=== PATIENT | male | born 1995 | race Two or more races ===

== ENCOUNTER → 2018-03-01 | Outpatient (REF) | payer BC ==
[~2018-03-01] MED LIST: HYDR-4309 PO; ONDA4TAB PO
[2018-03-01 13:35] LABS: PLATELET COUNT, AUTOMATED 212 K/uL (150-450)
== END ==
LOC: ZZSENDIN 13:24
PROVIDERS: ATTEND Physician Assistant
DX: R10.84 Generalized abdominal pain (principal)
CPT/HCPCS: 82040; 82247; 82310; 82374; 82435; 82565; 82947; 84075; 84132; 84155; 84295; 84450; 84460; 84520; 85025

== ENCOUNTER 2019-03-24 09:00 | Emergency (ER) | payer SELFPAY ==
[~2019-03-24 09:00] MED LIST changes: -HYDR-4309 PO; +HYDR-653 PO
--- NOTE | 2019-03-24 09:07 | ER Report ---
History and Physical Time Seen By MD: 09:04 HPI/ROS CHIEF COMPLAINT: Left lower quadrant abdominal pain, nausea, vomiting HISTORY OF PRESENT ILLNESS: Patient is a 24-year-old male here with complaints of left lower quadrant abdominal pain, nausea, vomiting for the past 48 hours. Patient reports that he developed hematemesis which prompted evaluation. Patient also describes having left sided distal extremity numbness which has been going on for a couple weeks now. Patient is afebrile, hemodynamically stable at time of evaluation. Denies prior history of similar symptoms. REVIEW OF SYSTEMS: Constitutional: No fever, + chills. Eyes: No discharge. ENT: No sore throat. Cardiovascular: No chest pain, no palpitations. Respiratory: No cough, no shortness of breath. Gastrointestinal: + Left lower quadrant abdominal pain with radiation to the left flank, + nausea and vomiting, hematemesis. Genitourinary: No hematuria. Musculoskeletal: No back pain. Skin: No rashes. Neurological: No headache. Allergies: Coded Allergies: No Known Drug Allergies (Unverified , 05/03/17) Home Meds Active Scripts Ondansetron 4 Mg Odt (ONDANSETRON 4 MG ODT) 4 Mg Tab.rapdis, 4 MG PO Q4-6H PRN for NAUSEA/VOMITING, #20 TAB Prov:GUI JEAN DO 03/24/19 Tramadol Hcl (TRAMADOL HCL) 50 Mg Tablet, 50 MG PO Q6H PRN for PAIN, #6 TAB 0 Refills Prov:GUI JEAN DO 03/24/19 Cephalexin Monohydrate (CEPHALEXIN) 500 Mg Cap, 500 MG PO Q12H for 7 Days, #14 CAP 0 Refills Prov:GUI JEAN DO 03/24/19 Discontinued Scripts Ondansetron (ZOFRAN ODT) 4 Mg Tab.rapdis, 4 MG PO Q6H PRN for NAUSEA/VOMITING, #20 TAB.RY 0 Refills Prov:JOYCE RAMOS MD 06/19/17 Ondansetron (ZOFRAN ODT) 4 Mg Tab.rapdis, 4 MG PO Q6H PRN for NAUSEA/VOMITING, #20 TAB.RY Prov:JO BLACKWELL APRN-C 05/03/17 Hydrocodone Bit/Acetaminophen (NORCO 5-325 TABLET) 1 Each Tablet, 1 EACH PO Q4- 6H PRN for PAIN, #12 TAB Prov:JO BLACKWELL DATA ENTRY ANALYST-C 05/03/17 Hx Smoking: No Smoking Status: Former Smoker Exposure to Second Hand Smoke?: No Hx Substance Use Disorder: No Hx Alcohol Use: No Constitutional Vital Sign - Last 24 Hours 03/24/19 03/24/19 09:07 11:22 Temp 98.0 Pulse 87 77 Resp 12 18 B/P (MAP) 129/80 140/86 (104) Pulse Ox 92 94 O2 Delivery Room Air Room Air Physical Exam General Appearance: The patient is alert, has no immediate need for airway protection and no signs of toxicity. Uncomfortable appearing Eyes: Pupils equal and round no pallor or injection. ENT, Mouth: Mucous membranes are moist. Respiratory: There are no retractions, lungs are clear to auscultation. Cardiovascular: Regular rate and rhythm. Gastrointestinal: Abdomen is soft and + tender in the left lower quadrant and left flank, no masses, bowel sounds normal. Neurological: No focal neurological deficits on examination Skin: Warm and dry, no rashes. Musculoskeletal: Neck is supple non tender. Extremities are nontender, nonswollen and have full range of motion. DIFFERENTIAL DIAGNOSIS: After history and physical exam differential diagnosis was considered for abdominal pain including but not limited to appendicitis, cholecystitis, gastritis and urinary tract infection. Medical Decision Making Data Points Result Diagram: 03/24/1920 03/24/1920 Laboratory Hematology Test 03/24/19 09:20 White Blood Count 8.4 k/uL (4.5-11.0) Red Blood Count 5.65 M/uL (4.00-5.60) H Hemoglobin 17.3 g/dL (14.0-18.0) Hematocrit 50.4 % (42.0-52.0) Mean Corpuscular Volume 89.2 fL (80.0-96.0) Mean Corpuscular Hemoglobin 30.6 pg (26.0-33.0) Mean Corpuscular Hemoglobin Concent 34.3 g/dL (32.0-36.0) Red Cell Distribution Width 13.8 % (11.5-14.5) Platelet Count 226 K/uL (150-450) Mean Platelet Volume 7.1 fL (7.2-11.1) L Neutrophils (%) (Auto) 68.8 % (39.4-72.5) Lymphocytes (%) (Auto) 18.1 % (17.6-49.6) Monocytes (%) (Auto) 11.6 % (4.1-12.4) Eosinophils (%) (Auto) 1.1 % (0.4-6.7) Basophils (%) (Auto) 0.4 % (0.3-1.4) Nucleated RBC Relative Count (auto) 0.0 /100WBC Neutrophils # (Auto) 5.8 K/uL (2.0-7.4) Lymphocytes # (Auto) 1.5 K/uL (1.3-3.6) Monocytes # (Auto) 1.0 K/uL (0.3-1.0) Eosinophils # (Auto) 0.1 K/uL (0.0-0.5) Basophils # (Auto) 0.0 K/uL (0.0-0.1) Nucleated RBC Absolute Count (auto) 0.00 K/uL Chemistry Test 03/24/19 09:20 Sodium Level 140 mmol/L (137-145) Potassium Level 3.9 mmol/L (3.5-5.0) Chloride Level 105 mmol/L (98-107) Carbon Dioxide Level 24 mmol/L (22-30) Blood Urea Nitrogen 18 mg/dl (9-21) Creatinine 1.00 mg/dl (0.66-1.25) Glomerular Filtration Rate Calc > 60.0 Random Glucose 100 mg/dl (75-110) Calcium Level 9.0 mg/dl (8.4-10.2) Total Bilirubin 0.6 mg/dl (0.2-1.3) Aspartate Amino Transf (AST/SGOT) 25 U/L (0-35) Alanine Aminotransferase (ALT/SGPT) 40 U/L (0-56) Alkaline Phosphatase 84 U/L (0-126) Total Protein 7.8 g/dl (6.3-8.2) Albumin 4.5 g/dl (3.5-5.0) Lipase 35 U/L (23-300) Urinalysis Test 03/24/19 09:03 Urine Color Yellow Urine Clarity Slightly-cloudy Urine pH 5.0 pH (4.8-9.5) Urine Specific [place] 1.030 Urine Protein 30 mg/dL (NEGATIVE) Urine Glucose (UA) Negative mg/dL (NEGATIVE) Urine Ketones Negative mg/dL (NEGATIVE) Urine Blood Small (NEGATIVE) Urine Nitrite Negative (NEGATIVE) Urine Bilirubin Negative (NEGATIVE) Urine Urobilinogen Negative mg/dL (0.2-1.9) Urine Leukocyte Esterase Trace (NEGATIVE) Urine RBC 6 /HPF (0-2/HPF) Urine WBC 21 /HPF (0-5/HPF) Urine Squamous Epithelial Cells Many /LPF (</=FEW) Urine Bacteria Negative /HPF (NONE-FEW) Urine Mucus Few /HPF (NONE-FEW) Microbiology Microbiology Date/Time Source Procedure Growth Status 03/24/19 09:03 Clean Catch Midstream Ur Urine Culture - Final Complete EKG/Imaging Imaging PATIENT NAME: Cherelle Saez : 1995 MR: [id number] V: [id number] EXAM DATE: [id number] ORDERING PHYSICIAN: GUI JENA TECHNOLOGIST: Location: [facility] [place] Patient: Cherelle Saez : 1995 Visit/Account:[id number] Date of Sevice: 03/24/2019 CT ABDOMEN PELVIS W/ CON HISTORY: LLQ abd pain, NV TECHNIQUE: CT abdomen and pelvis with intravenous contrast. One of the following dose optimization techniques was utilized in the performance of this exam: Automated exposure control; adjustment of the mA and/or kV according to the patient's size; or use of an iterative reconstruction technique. Specific details can be referenced in the facility's radiology CT exam operational policy. CONTRAST: 75 mL Isovue-370. COMPARISON: None. FINDINGS: Visualized lung bases: Negative. Hepatobiliary: Nonspecific small nodularity along the posterior gallbladder wall measuring up to 7 mm (image 147 of series 3). This may be related to a small gallbladder fold, polyp, or noncalcified stone. Otherwise negative. Spleen: Borderline enlarged measuring 13.2 cm greatest diameter. Adrenals: Negative. Pancreas: Negative. Kidneys/: Negative. GI: Mild chronic appearing wall thickening within the colon and terminal ileum. Otherwise negative. Appendix is absent. No evidence for obstruction. Vessels/spaces/nodes: Haziness groundglass within the mesenteric root surrounding normal sized lymph nodes. Nonspecific prominent portacaval lymph node measuring 39 x 20 mm. Additional mildly prominent ankur hepatis lymph nodes noted. No additional retroperitoneal or iliac chain lymphadenopathy. Bones/soft tissues: Negative. IMPRESSION: 1. No acute findings. 2. Borderline prominence of the spleen. In addition, there is an enlarged periportal lymph node as well as hazy groundglass within the mesenteric root surrounding normal sized lymph nodes. Findings are nonspecific and could be unrelated although cannot exclude developing lymphoma or other lymphoproliferative process. The mesenteric findings could be related to mesenteric panniculitis. 3 month follow-up CT is recommended for comparison. 3. Chronic appearing mild wall thickening within the colon and terminal ileum. Cannot completely exclude acute on chronic process although felt unlikely. 4. Nonspecific nodularity along the posterior gallbladder wall. Follow-up nonemergent right upper quadrant ultrasound is recommended for further characterization. Report Dictated By: Melvin Edwards MD at 03/24/2019 10:34 AM Report E-Signed By: Melvin Edwards MD at 03/24/2019 10:42 AM WSN:[id number] ED Course/Re-evaluation ED Course Patient is a 24-year-old male here with complaints of left lower quadrant abdominal pain, nausea, vomiting, hematemesis. Patient reports initial onset of pain followed by vomiting and nausea for the past [address] imaging showed no discrete findings however radiology recommended follow-up in [address] imaging, please see radiology report for further details. Urinalysis was concerning for urinary tract infection. Patient was placed on Keflex 500 mg twice a day for 7 days. Culture sent. Recommend close PCP follow-up. Return precautions provided. Decision to Disposition Date: Mar 24, 2019 Decision to Disposition Time: 11:10 Depart Departure Latest Vital Signs Vital Signs Date Time Temp Pulse Resp B/P (MAP) Pulse Ox O2 Delivery O2 Flow Rate FiO2 03/24/19 11:22 77 18 140/86 (104) 94 Room Air 03/24/19 09:07 98.0 Impression: Primary Impression: Urinary tract infection Condition: Improved Disposition: HOME OR SELF-CARE New Scripts Ondansetron 4 Mg Odt (ONDANSETRON 4 MG ODT) 4 Mg Tab.rapdis 4 MG PO Q4-6H PRN for NAUSEA/VOMITING, #20 TAB Prov: GUI JEAN DO 03/24/19 Tramadol Hcl (TRAMADOL HCL) 50 Mg Tablet 50 MG PO Q6H PRN for PAIN, #6 TAB 0 Refills Prov: GUI JEAN DO 03/24/19 Cephalexin Monohydrate (CEPHALEXIN) 500 Mg Cap 500 MG PO Q12H for 7 Days, #14 CAP 0 Refills Prov: GUI JEAN DO 03/24/19 Patient Instructions: Urinary Tract Infection in Men (DC) Additional Instructions: Please drink plenty of water. Please take Keflex one tablet twice daily for 7 days for suspected urinary tract infection. Please follow-up with her primary care provider in the next 24-48 hours for reevaluation. You will need to have a repeat CT imaging scan in 3 months, please see your CT imaging report below. Please return promptly if you develop fevers, worsening pain, inability to keep down food or fluids. You may take Zofran 1 tablet every 4-6 hours as needed for nausea and vomiting. You may take tramadol 1 tablet every 8 hours as needed for breakthrough pain control. PATIENT NAME: Cherelle Saez : 1995 MR: [id number] V: [id number] EXAM DATE: [id number] ORDERING PHYSICIAN: GUI JEAN TECHNOLOGIST: Location: [facility] [place] Patient: Cherelle Saez : 1995 Visit/Account:[id number] Date of Sevice: 03/24/2019 CT ABDOMEN PELVIS W/ CON HISTORY: LLQ abd pain, NV TECHNIQUE: CT abdomen and pelvis with intravenous contrast. One of the following dose optimization techniques was utilized in the performance of this exam: Automated exposure control; adjustment of the mA an d/or kV according to the patient's size; or use of an iterative reconstruction technique. Specific details can be referenced in the facility's radiology CT exam operational policy. CONTRAST: 75 mL Isovue-370. COMPARISON: None. FINDINGS: Visualized lung bases: Negative. Hepatobiliary: Nonspecific small nodularity along the posterior gallbladder wall measuring up to 7 mm (image 147 of series 3). This may be related to a small gallbladder fold, polyp, or noncalcified stone. Otherwise negative. Spleen: Borderline enlarged measuring 13.2 cm greatest diameter. Adrenals: Negative. Pancreas: Negative. Kidneys/: Negative. GI: Mild chronic appearing wall thickening within the colon and terminal ileum. Otherwise negative. Appendix is absent. No evidence for obstruction. Vessels/spaces/nodes: Haziness groundglass within the mesenteric root surrounding normal sized lymph nodes. Nonspecific prominent portacaval lymph node measuring 39 x 20 mm. Additional mildly prominent ankur hepatis lymph nodes noted. No additional retroperitoneal or iliac chain lymphadenopathy. Bones/soft tissues: Negative. IMPRESSION: 1. No acute findings. 2. Borderline prominence of the spleen. In addition, there is an enlarged periportal lymph node as well as hazy groundglass within the mesenteric root surrounding normal sized lymph nodes. Findings are nonspecific and could be unrelated although cannot exclude developing lymphoma or other lymphoproliferative process. The mesenteric findings could be related to mesenteric panniculitis. 3 month follow-up CT is recommended for comparison. 3. Chronic appearing mild wall thickening within the colon and terminal ileum. Cannot completely exclude acute on chronic process although felt unlikely. 4. Nonspecific nodularity along the posterior gallbladder wall. Follow-up nonemergent right upper quadrant ultrasound is recommended for further characterization. Report Dictated By: Melvin Edwards MD at 03/24/2019 10:34 AM Report E-Signed By: Melvin Edwards MD at 03/24/2019 10:42 AM WSN:[id number] GUI JEAN DO Mar 24, 2019 09:07
[2019-03-24] MEDS ORDERED: NS(*) 0.9% 1000 ML BAG 1,000 ML IV ONE (09:24)
[2019-03-24] MEDS ORDERED: fentaNYL CITR 100 MCG/2 ML AMP IVP ONE (09:25)
[2019-03-24] MEDS ORDERED: ONDANSETRON 4 MG/2 ML VIAL IVP ONE (09:25)
[2019-03-24 09:33] LABS: PLATELET COUNT, AUTOMATED 226 K/uL (150-450)
[2019-03-24] MEDS ORDERED: IOPAMIDOL 76% 100 ML INFUS BTL 100 ML ONE (09:50)
--- NOTE | 2019-03-24 10:48 | RADIOLOGY IMAGING REPORT ---
FACILITY: [facility] PATIENT NAME: Cherelle Saez : 1995 MR: [id number] V: [id number] EXAM DATE: ORDERING PHYSICIAN: GUI JEAN TECHNOLOGIST: Location: [facility] [place] Patient: Cherelle Saez : 1995 Visit/Account:[id number] Date of Sevice: 03/24/2019 CT ABDOMEN PELVIS W/ CON HISTORY: LLQ abd pain, NV TECHNIQUE: CT abdomen and pelvis with intravenous contrast. One of the following dose optimization techniques was utilized in the performance of this exam: Autom ated exposure control; adjustment of the mA and/or kV according to the patient's size; or use of an i terative reconstruction technique. Specific details can be referenced in the facility's radiology C T exam operational policy. CONTRAST: 75 mL Isovue-370. COMPARISON: None. FINDINGS: Visualized lung bases: Negative. Hepatobiliary: Nonspecific small nodularity along the posterior gallbladder wall measuring up to 7 m m (image 147 of series 3). This may be related to a small gallbladder fold, polyp, or noncalcified st one. Otherwise negative. Spleen: Borderline enlarged measuring 13.2 cm greatest diameter. Adrenals: Negative. Pancreas: Negative. Kidneys/: Negative. GI: Mild chronic appearing wall thickening within the colon and terminal ileum. Otherwise negative. Appendix is absent. No evidence for obstruction. Vessels/spaces/nodes: Haziness groundglass within the mesenteric root surrounding normal sized lymph nodes. Nonspecific prominent portacaval lymph node measuring 39 x 20 mm. Additional mildly prominent ankur hepatis lymph nodes noted. No additional retroperitoneal or iliac chain lymphadenopathy. Bones/soft tissues: Negative. IMPRESSION: 1. No acute findings. 2. Borderline prominence of the spleen. In addition, there is an enlarged periportal lymph node as we ll as hazy groundglass within the mesenteric root surrounding normal sized lymph nodes. Findings are nonspecific and could be unrelated although cannot exclude developing lymphoma or other lymphoprolife rative process. The mesenteric findings could be related to mesenteric panniculitis. 3 month follow-u p CT is recommended for comparison. 3. Chronic appearing mild wall thickening within the colon and terminal ileum. Cannot completely excl ude acute on chronic process although felt unlikely. 4. Nonspecific nodularity along the posterior gallbladder wall. Follow-up nonemergent right upper shelly drant ultrasound is recommended for further characterization. Report Dictated By: Melvin Edwards MD at 03/24/2019 10:34 AM Report E-Signed By: Melvin Edwards MD at 03/24/2019 10:42 AM WSN:[id number]
[2019-03-24] MEDS ORDERED: CEPH500C24 PO (11:14)
[2019-03-24] MEDS ORDERED: TRAM-420 PO (11:17)
[2019-03-24] MEDS ORDERED: ONDA4TAB9 PO ×2 (11:17→11:18)
[2019-03-24 11:22] VITALS: BP 140/86
== END 2019-03-24 11:22 | disposition home or self-care (01) ==
LOC: ER 09:13
DX: N39.0 Urinary tract infection, site not specified (principal)
CPT/HCPCS: 74177; 81001; 83690; 85025; 87088; 96361; 96374; 96375; 99284; J2405; J3010; J7030; Q9967; 82040; 82247; 82310; 82374; 82435; 82565; 82947; 84075; 84132; 84155; 84295; 84450; 84460; 84520